=== PATIENT | male | born 1955 | race Caucasian/White ===

== ENCOUNTER 2017-01-22 12:13 | Emergency (ER) | payer OTHER ==
[~2017-01-22] VITALS: Ht 182.9 cm; Wt 97.7 kg
[2017-01-22] MEDS ORDERED: PREG100CA (12:28)
[2017-01-22] MEDS ORDERED: FLUT1SPR2 (12:28)
[2017-01-22] MEDS ORDERED: OMEP40CA2 (12:28)
[2017-01-22] MEDS ORDERED: ASPI1TAB15 PO (12:28)
[2017-01-22] MEDS ORDERED: FLOM5CAP (12:28)
[2017-01-22] MEDS ORDERED: VITA10006 PO (12:28)
[2017-01-22] MEDS ORDERED: LISI10TA4 (12:28)
[2017-01-22] MEDS ORDERED: ATOR1TAB19 (12:28)
[2017-01-22] MEDS ORDERED: FISH120012 PO (12:28)
[2017-01-22] MEDS ORDERED: DESL5TAB4 (12:28)
[2017-01-22] MEDS ORDERED: ASPIRIN 81 MG CHEW TABLET PO ONE (14:15)
[2017-01-22 14:22] LABS: BASO % 0.6 % (0.0-1.0); EOS # 0.2 K/mm3 (0.0-0.50); EOS % 2.1 % (0.0-3.0); LARGE UNSTAINED CELL # 0.3 K/mm3 (0.0-0.4); LARGE UNSTAINED CELL % 3.3 % (0.0-4.0); LYMPH # 4.9 K/mm3 (1.5-4.5); LYMPH % 54.2 % (24.0-44.0); MEAN CORPUSCULAR HEMOGLOBIN 32.4 pg (27.0-33.0); MEAN CORPUSCULAR HGB CONC 36.1 g/dl (32.0-36.5); MEAN CORPUSCULAR VOLUME 89.8 fl (80.0-96.0); MONO # 0.6 K/mm3 (0.0-0.8); NEUTROPHILS # 2.8 K/mm3 (1.8-7.7); NEUTROPHILS % 32.8 % (36.0-66.0); PLATELET COUNT, AUTOMATED 176 k/mm3 (150-450); RED CELL DISTRIBUTION WIDTH 12.9 % (11.5-14.5); WHITE BLOOD COUNT 8.5 K/mm3 (4.0-10.0)
[2017-01-22 14:42] LABS: ANION GAP 10 MEQ/L (8-16); BLOOD UREA NITROGEN 14 MG/DL (7-18); CALCIUM LEVEL 8.6 MG/DL (8.8-10.2); CARBON DIOXIDE LEVEL 26 MEQ/L (21-32); CHLORIDE LEVEL 106 MEQ/L (98-107); CREATININE FOR GFR 0.99 MG/DL (0.70-1.30); GLOMERULAR FILTRATION RATE > 60.0 (>49); GLUCOSE, FASTING 104 MG/DL (80-110); POTASSIUM SERUM 3.6 MEQ/L (3.5-5.1); SODIUM LEVEL 142 MEQ/L (136-145)
--- NOTE | 2017-01-22 14:59 | REP ---
PORTABLE CHEST X-RAY: Single view. HISTORY: Chest pain. COMPARISON STUDY: August 24, 2012. FINDINGS: EKG monitoring electrodes overlie the chest. Lungs are well inflated and clear. Heart is not enlarged. Pulmonary vasculature is not increased. There is some minimal linear fibrosis in the left base. The pleural angles are sharp. No significant bony abnormality. IMPRESSION: Minimal linear fibrosis left base. Otherwise no acute disease. Signed by Shravan Dale MD 01/22/2017 04:40 P
[2017-01-22 15:07] LABS: ALBUMIN 3.9 GM/DL (3.2-5.2); ALBUMIN/GLOBULIN RATIO 1.22 (1.00-1.93); ALKALINE PHOSPHATASE 49 U/L (45-117); ALT/SGPT 44 U/L (12-78); AST/SGOT 27 U/L (15-37); BILIRUBIN,DIRECT 0.2 MG/DL (0.0-0.2); BILIRUBIN,TOTAL 0.9 MG/DL (0.2-1.0); TOTAL PROTEIN 7.1 GM/DL (6.4-8.2)
[2017-01-22 18:48] VITALS: BP 134/82
--- NOTE | 2017-01-22 20:59 | ECGEPIP ---
Stationary ECG Study [facility] - ED Test Date: 2017-01-22 Pat Name: KIEL VIVEROS Department: Room: - Gender: M Cota: : 1955 Requested By: ALEXANDRIA Smith Order Number: [id number] Reading MD: Meg Martin Measurements Intervals [place] Rate: 56 P: 16 MT: 186 QRS: 14 QRSD: 116 T: 25 QT: 408 QTc: 394 Interpretive Statements SINUS BRADYCARDIA MODERATE INTRAVENTRICULAR CONDUCTION DELAY NSTTW ABNORMALITY Electronically Signed On 01-22-2017 20:59:21 EDT by Meg Martin
--- NOTE | 2017-01-22 21:03 | ECGEPIP ---
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
== END 2017-01-22 18:53 | disposition home or self-care (01) ==
LOC: M ED 12:13
DX: R07.89 Other chest pain (principal); I10 Essential (primary) hypertension; E78.5 Hyperlipidemia, unspecified; K21.9 Gastro-esophageal reflux disease without esophagitis; Z79.899 Other long term (current) drug therapy; Z79.82 Long term (current) use of aspirin

== ENCOUNTER → 2017-02-10 | Outpatient (REF) | payer OTHER ==
[~2017-02-10] MED LIST: ASPI1TAB15 PO; ATOR1TAB19; DESL5TAB4; FISH120012 PO; FLOM5CAP; FLUT1SPR2; LISI10TA4; OMEP40CA2; PREG100CA; VITA10006 PO
== END ==
LOC: M LABDRAW1 10:26
PROVIDERS: ATTEND Emergency Medicine
DX: R00.2 Palpitations (principal); I10 Essential (primary) hypertension

== ENCOUNTER → 2017-07-14 | Outpatient (CLI) | payer OTHER ==
[~2017-07-14] MED LIST changes: +METHACHOLINE KIT (J7674) INH ONE
--- NOTE | 2017-07-14 10:19 | PFTRPT ---
Site: [facility], [address] [place], [address] ID: [id number] Name: KIEL VIVEROS Doctor: Vee Sanders Tech: Saravanan WILLIAMSON RRT Age: 62 Sex: Male Race: Height: 70.00 Inches Weight: 201.00 Lbs BSA: 2.09 Diagnosis: R06.02 of albuterol for postbronchodilator. Pre-Bronch Post-Bronch Pred Actual %Pred Actual %Chng SPIROMETRY FVC (L) 4.66 5.42 116 5.25 -3 FEV1 (L) 3.49 4.52 129 4.27 -5 FEV1/FVC (%) 75 83 111 81 -2 FEF 25% (L/sec) 7.43 8.14 109 7.95 -2 FEF 50% (L/sec) 4.46 5.42 121 4.95 -8 FEF 75% (L/sec) 1.37 2.30 168 1.54 -33 FEF 25-75% (L/sec) 2.80 4.71 168 3.87 -17 FEF Max (L/sec) 8.96 10.11 112 9.58 -5 FIVC (L) 5.32 5.14 -3 FIF 50% (L/sec) 4.63 6.68 144 5.99 -10 FIF Max (L/sec) 6.68 6.06 -9
== END ==
LOC: M CARPUL 09:01
PROVIDERS: ATTEND Nurse Practitioner Adult Health
DX: R06.02 Shortness of breath (principal)
CPT/HCPCS: 94070; J7674

== ENCOUNTER → 2017-09-20 | Outpatient (CLI) | payer OTHER | LOC: M SLEEP 19:33 | DX: G47.30 Sleep apnea, unspecified (principal) ==

== ENCOUNTER → 2020-08-22 | Outpatient (REF) | payer MEDICARE, OTHER ==
[~2020-08-22] MED LIST changes: +ASPI-546 PO; -ASPI1TAB15 PO; +DESL1TAB3; -DESL5TAB4; +FLOM0.4C39; -FLOM5CAP; +LISI10TA22; -LISI10TA4; -METHACHOLINE KIT (J7674) INH ONE; -OMEP40CA2; +OMEP40CA97
== END ==
LOC: M LAB REF 18:13
PROVIDERS: ATTEND Physician Assistant
DX: J06.9 Acute upper respiratory infection, unspecified (principal)

== ENCOUNTER → 2020-11-27 | Outpatient (REF) | payer MEDICARE, OTHER | LOC: M LAB REF 17:00 | PROVIDERS: ATTEND Family Medicine | DX: M70.22 Olecranon bursitis, left elbow (principal) ==

== ENCOUNTER → 2021-03-11 | Outpatient (CLI) | payer MEDICARE, OTHER ==
[~2021-03-11] MED LIST changes: +OMEP40CA4; -OMEP40CA97
[2021-03-11 13:35] LABS: BASO % 0.8 % (0.0-1.0); EOS # 0.2 10^3/uL (0.0-0.5); HEMATOCRIT 44.2 % (42.0-52.0); HEMOGLOBIN 15.2 g/dl (13.5-17.5); LYMPH # 1.9 10^3/uL (1.5-5.0); LYMPH % 39.5 % (24.0-44.0); MEAN CORPUSCULAR HEMOGLOBIN 31.5 pg (27.0-33.0); MEAN CORPUSCULAR HGB CONC 34.4 g/dl (32.0-36.5); MEAN CORPUSCULAR VOLUME 91.5 fl (80.0-96.0); MONO # 0.6 10^3/uL (0.0-0.8); MONO % 11.6 % (2.0-8.0); NEUTROPHILS # 2.1 10^3/uL (1.5-8.5); NEUTROPHILS % 42.5 % (36.0-66.0); PLATELET COUNT, AUTOMATED 192 10^3/uL (150-450); RED BLOOD COUNT 4.83 10^6/uL (4.30-6.10); WHITE BLOOD COUNT 4.8 10^3/uL (4.0-10.0)
[2021-03-11 14:04] LABS: BLOOD UREA NITROGEN 14 MG/DL (7-18); CALCIUM LEVEL 8.6 MG/DL (8.8-10.2); CARBON DIOXIDE LEVEL 28 MEQ/L (21-32); CHLORIDE LEVEL 107 MEQ/L (98-107); CREATININE FOR GFR 0.86 MG/DL (0.70-1.30); GLOMERULAR FILTRATION RATE > 60.0 (>49); GLUCOSE, FASTING 93 MG/DL (70-100); POTASSIUM SERUM 4.3 MEQ/L (3.5-5.1); SODIUM LEVEL 138 MEQ/L (136-145)
[2021-03-11 14:10] LABS: ERYTHROCYTE SEDIMENTATION RATE 2 mm/hr (0-20)
== END ==
LOC: M PLALAB 10:36
PROVIDERS: ATTEND Internal Medicine Infectious Disease
DX: M70.22 Olecranon bursitis, left elbow (principal); Z79.899 Other long term (current) drug therapy
CPT/HCPCS: 36415; 80048; 85025; 85652; 86140; G0463

== ENCOUNTER → 2021-07-23 | Outpatient (REF) | payer MEDICARE, OTHER ==
[2021-07-23 14:07] LABS: APPEARANCE, URINE CLEAR (CLEAR); BACTERIA, URINE AUTO NEGATIVE (NEGATIVE); BILIRUBIN, URINE AUTO NEGATIVE (NEGATIVE); BLOOD, URINE BLOOD NEGATIVE (NEGATIVE); COLOR, URINE YELLOW (YELLOW); GLUCOSE, URINE (UA) AUTO NEGATIVE (NEGATIVE); KETONE, URINE AUTO NEGATIVE (NEGATIVE); LEUKOCYTE ESTERASE, URINE AUTO NEGATIVE (NEGATIVE); NITRITE, URINE AUTO NEGATIVE (NEGATIVE); PROTEIN, URINE AUTO NEGATIVE (NEGATIVE); RBC, URINE AUTO 1 /HPF (0-3); SPECIFIC GRAVITY URINE AUTO 1.012 (1.002-1.035); SQUAMOUS EPITHELIAL CELL UR AU 0 /HPF (0-6); UROBILINOGEN, URINE AUTO 0.2 mg/dL (0.0-2.0); WBC, URINE AUTO 0 /HPF (0-3)
== END ==
LOC: M SMT 13:02
PROVIDERS: ATTEND Physician Assistant
DX: R97.20 Elevated prostate specific antigen [PSA] (principal); Z79.899 Other long term (current) drug therapy
CPT/HCPCS: 81001; 87086; G0463

== ENCOUNTER → 2021-10-20 | Outpatient (CLI) | payer MEDICARE, OTHER | LOC: M LAB 09:55 | PROVIDERS: ATTEND Physician Assistant | DX: R97.20 Elevated prostate specific antigen [PSA] (principal) ==

== ENCOUNTER → 2021-11-05 | Outpatient (REF) | payer MEDICARE, OTHER | LOC: M SMT PRO 09:47 | PROVIDERS: ATTEND Urology | DX: R97.20 Elevated prostate specific antigen [PSA] (principal) | CPT/HCPCS: 55700; 76942; G0416 ==

== ENCOUNTER → 2021-11-18 | Outpatient (REF) | payer MEDICARE, OTHER | LOC: M LAB REF 17:01 | PROVIDERS: ATTEND Physician Assistant | DX: N41.0 Acute prostatitis (principal) ==

== ENCOUNTER → 2022-01-02 | Outpatient (CLI) | payer MEDICARE, OTHER ==
[2022-01-02 08:04] LABS: BASO % 0.6 % (0.0-1.0); EOS # 0.2 10^3/uL (0.0-0.5); EOS % 3.2 % (0.0-3.0); HEMATOCRIT 44.1 % (42.0-52.0); HEMOGLOBIN 15.2 g/dl (13.5-17.5); LYMPH # 2.1 10^3/uL (1.5-5.0); LYMPH % 41.9 % (24.0-44.0); MEAN CORPUSCULAR HEMOGLOBIN 31.2 pg (27.0-33.0); MEAN CORPUSCULAR HGB CONC 34.5 g/dl (32.0-36.5); MEAN CORPUSCULAR VOLUME 90.6 fl (80.0-96.0); MONO # 0.5 10^3/uL (0.0-0.8); NEUTROPHILS # 2.2 10^3/uL (1.5-8.5); NEUTROPHILS % 44.1 % (36.0-66.0); PLATELET COUNT, AUTOMATED 207 10^3/uL (150-450); RED BLOOD COUNT 4.87 10^6/uL (4.30-6.10)
[2022-01-02 08:35] LABS: ALBUMIN 3.6 GM/DL (3.2-5.2); ALT/SGPT 33 U/L (12-78); BILIRUBIN,TOTAL 0.5 MG/DL (0.2-1.0); BLOOD UREA NITROGEN 27 MG/DL (7-18); CALCIUM LEVEL 9.3 MG/DL (8.8-10.2); CARBON DIOXIDE LEVEL 28 MEQ/L (21-32); CHLORIDE LEVEL 110 MEQ/L (98-107); CHOLESTEROL LEVEL 147 MG/DL (<200); FREE T4 0.87 NG/DL (0.76-1.46); GLOMERULAR FILTRATION RATE > 60.0 (>49); GLUCOSE, FASTING 108 MG/DL (70-100); HDL CHOLESTEROL 35 MG/DL (>40); LDL CHOLESTEROL 92 MG/DL (<100); NON-HDL-C 112 MG/DL; POTASSIUM SERUM 4.7 MEQ/L (3.5-5.1); SODIUM LEVEL 144 MEQ/L (136-145); THYROID STIMULATING HORMONE 0.828 uIU/ML (0.358-3.740); TOTAL PROTEIN 6.7 GM/DL (6.4-8.2); TRIGLYCERIDES LEVEL 100 MG/DL (<150)
[2022-01-04 08:08] LABS: PSA TOTAL 10.9 ng/mL (0.0-4.0)
== END ==
LOC: M LAB 07:31
PROVIDERS: ATTEND Family Medicine
DX: E78.2 Mixed hyperlipidemia (principal); R97.20 Elevated prostate specific antigen [PSA]

== ENCOUNTER → 2022-01-06 | Outpatient (CLI) | payer MEDICARE, OTHER | LOC: M RAD 12:01 | PROVIDERS: ATTEND Physician Assistant | DX: M25.552 Pain in left hip (principal) ==

== ENCOUNTER → 2022-04-23 | Outpatient (CLI) | payer MEDICARE, OTHER ==
[2022-04-24 23:11] LABS: PSA % FREE 16.3 % (.); PSA FREE 0.93 ng/mL; PSA TOTAL 5.7 ng/mL (0.0-4.0)
== END ==
LOC: M LAB 08:44
PROVIDERS: ATTEND Urology
DX: R97.20 Elevated prostate specific antigen [PSA] (principal)

== ENCOUNTER → 2022-12-08 | Outpatient (CLI) | payer MEDICARE, OTHER | LOC: M LAB 08:44 | PROVIDERS: ATTEND Physician Assistant | DX: R97.20 Elevated prostate specific antigen [PSA] (principal) ==

== ENCOUNTER → 2022-12-31 | Outpatient (CLI) | payer MEDICARE, OTHER ==
[2022-12-31 08:03] LABS: BASO % 0.4 % (0.0-1.0); EOS # 0.2 10^3/uL (0.0-0.5); HEMATOCRIT 43.9 % (42.0-52.0); HEMOGLOBIN 15.3 g/dl (13.5-17.5); LYMPH % 26.2 % (24.0-44.0); MEAN CORPUSCULAR HEMOGLOBIN 31.7 pg (27.0-33.0); MEAN CORPUSCULAR HGB CONC 34.9 g/dl (32.0-36.5); MEAN CORPUSCULAR VOLUME 90.9 fl (80.0-96.0); MONO # 0.6 10^3/uL (0.0-0.8); MONO % 8.5 % (2.0-8.0); NEUTROPHILS # 4.7 10^3/uL (1.5-8.5); NEUTROPHILS % 62.6 % (36.0-66.0); PLATELET COUNT, AUTOMATED 181 10^3/uL (150-450); RED BLOOD COUNT 4.83 10^6/uL (4.30-6.10); WHITE BLOOD COUNT 7.5 10^3/uL (4.0-10.0)
[2022-12-31 08:30] LABS: ALKALINE PHOSPHATASE 50 U/L (46-116); ALT/SGPT 21 U/L (7.0-40); AST/SGOT 12 U/L (<34); BLOOD UREA NITROGEN 22 MG/DL (9-23); CALCIUM LEVEL 8.8 MG/DL (8.3-10.6); CARBON DIOXIDE LEVEL 30 MMOL/L (20-31); CHLORIDE LEVEL 106 MMOL/L (98-107); CHOLESTEROL LEVEL 139 MG/DL (<200); CHOLESTEROL RISK RATIO 3.54 (<5); GLOMERULAR FILTRATION RATE > 60.0 (>49); GLUCOSE, FASTING 99 MG/DL (74-106); HDL CHOLESTEROL 39.2 MG/DL (>40); LDL CHOLESTEROL 82.8 MG/DL (<100); NON-HDL-C 99.8 MG/DL; POTASSIUM SERUM 4.7 MMOL/L (3.5-5.1); SODIUM LEVEL 141 MMOL/L (136-145); TOTAL PROTEIN 6.4 G/DL (5.7-8.2); TRIGLYCERIDES LEVEL 85 MG/DL (<150)
[2023-01-01 23:10] LABS: PSA % FREE 15.5 % (.); PSA FREE 0.68 ng/mL; PSA TOTAL 4.4 ng/mL (0.0-4.0)
== END ==
LOC: M LAB 07:35
PROVIDERS: ATTEND Physician Assistant
DX: E78.2 Mixed hyperlipidemia (principal); R97.20 Elevated prostate specific antigen [PSA]

== ENCOUNTER → 2023-05-21 | Outpatient (REF) | payer MEDICARE, OTHER | LOC: M LAB REF 14:36 | PROVIDERS: ATTEND Surgery | DX: C44.91 Basal cell carcinoma of skin, unspecified (principal) ==

== ENCOUNTER → 2023-12-02 | Outpatient (CLI) | payer MEDICARE, OTHER | LOC: M LAB 08:40 | PROVIDERS: ATTEND Physician Assistant | DX: R97.20 Elevated prostate specific antigen [PSA] (principal) ==

== ENCOUNTER → 2024-01-10 | Outpatient (CLI) | payer MEDICARE, OTHER ==
[2024-01-10 08:03] LABS: BASO % 0.6 % (0.0-1.0); EOS # 0.1 10^3/uL (0.0-0.5); EOS % 2.8 % (0.0-3.0); HEMATOCRIT 45.4 % (42.0-52.0); LYMPH # 1.8 10^3/uL (1.5-5.0); MEAN CORPUSCULAR HEMOGLOBIN 32.2 pg (27.0-33.0); MEAN CORPUSCULAR HGB CONC 35.2 g/dl (32.0-36.5); MEAN CORPUSCULAR VOLUME 91.3 fl (80.0-96.0); MONO # 0.5 10^3/uL (0.0-0.8); MONO % 10.7 % (2.0-8.0); NEUTROPHILS # 2.4 10^3/uL (1.5-8.5); NEUTROPHILS % 48.7 % (36.0-66.0); PLATELET COUNT, AUTOMATED 164 10^3/uL (150-450); RED BLOOD COUNT 4.97 10^6/uL (4.30-6.10)
[2024-01-10 08:30] LABS: ALBUMIN 3.8 G/DL (3.2-5.2); ALKALINE PHOSPHATASE 40 U/L (46-116); ALT/SGPT 23 U/L (7.0-40); AST/SGOT 9 U/L (<34); BILIRUBIN,TOTAL 0.9 MG/DL (0.3-1.2); BLOOD UREA NITROGEN 32 MG/DL (9-23); CALCIUM LEVEL 8.8 MG/DL (8.3-10.6); CARBON DIOXIDE LEVEL 27 MMOL/L (20-31); CHLORIDE LEVEL 110 MMOL/L (98-107); CHOLESTEROL LEVEL 147 MG/DL (<200); CHOLESTEROL RISK RATIO 4.12 (<5); CREATININE FOR GFR 0.78 MG/DL (0.70-1.30); GLOMERULAR FILTRATION RATE > 60.0 (>49); GLUCOSE, FASTING 95 MG/DL (74-106); HDL CHOLESTEROL 35.6 MG/DL (>40); LDL CHOLESTEROL 88.2 MG/DL (<100); NON-HDL-C 111.4 MG/DL; POTASSIUM SERUM 4.5 MMOL/L (3.5-5.1); SODIUM LEVEL 142 MMOL/L (136-145); TOTAL PROTEIN 6.3 G/DL (5.7-8.2); TRIGLYCERIDES LEVEL 116 MG/DL (<150)
[2024-01-10 08:32] LABS: FREE T4 1.06 NG/DL (0.89-1.76); THYROID STIMULATING HORMONE 0.561 uIU/ML (0.55-4.78)
[2024-01-10 09:06] LABS: HEMOGLOBIN A1c 4.7 % (4.0-6.0)
== END ==
LOC: M LAB 07:00
PROVIDERS: ATTEND Physician Assistant
DX: E78.2 Mixed hyperlipidemia (principal)

== ENCOUNTER → 2024-04-17 | Outpatient (REF) | payer MEDICARE, OTHER | LOC: M SFHCDERM 18:00 | PROVIDERS: ATTEND Physician Assistant | DX: D22.5 Melanocytic nevi of trunk (principal) ==

== ENCOUNTER → 2024-06-27 | Outpatient (CLI) | payer MEDICARE, OTHER ==
[2024-06-27 09:04] LABS: BASO % 0.6 % (0.0-1.0); EOS # 0.1 10^3/uL (0.0-0.5); EOS % 2.4 % (0.0-3.0); HEMOGLOBIN 15.9 g/dl (13.5-17.5); LYMPH # 1.7 10^3/uL (1.5-5.0); LYMPH % 31.3 % (24.0-44.0); MEAN CORPUSCULAR HEMOGLOBIN 32.4 pg (27.0-33.0); MEAN CORPUSCULAR HGB CONC 35.3 g/dl (32.0-36.5); MEAN CORPUSCULAR VOLUME 91.6 fl (80.0-96.0); MONO # 0.6 10^3/uL (0.0-0.8); NEUTROPHILS # 2.9 10^3/uL (1.5-8.5); NEUTROPHILS % 54.3 % (36.0-66.0); PLATELET COUNT, AUTOMATED 169 10^3/uL (150-450); RED BLOOD COUNT 4.91 10^6/uL (4.30-6.10); WHITE BLOOD COUNT 5.3 10^3/uL (4.0-10.0)
[2024-06-27 09:25] LABS: ALBUMIN 3.8 G/DL (3.2-5.2); ALKALINE PHOSPHATASE 43 U/L (40-129); ALT/SGPT 25 U/L (7.0-40); AST/SGOT 9 U/L (<34); BILIRUBIN,TOTAL 0.9 MG/DL (0.3-1.2); BLOOD UREA NITROGEN 32 MG/DL (9-23); CALCIUM LEVEL 9.4 MG/DL (8.3-10.6); CARBON DIOXIDE LEVEL 28 MMOL/L (20-31); CHLORIDE LEVEL 108 MMOL/L (98-107); CHOLESTEROL LEVEL 146 MG/DL (<200); CHOLESTEROL RISK RATIO 3.66 (<5); CREATININE FOR GFR 0.79 MG/DL (0.70-1.30); GLOMERULAR FILTRATION RATE > 60.0 (>42); GLUCOSE, FASTING 99 MG/DL (74-106); HDL CHOLESTEROL 39.8 MG/DL (>40); NON-HDL-C 106.2 MG/DL; POTASSIUM SERUM 4.5 MMOL/L (3.5-5.1); SODIUM LEVEL 143 MMOL/L (136-145); TOTAL PROTEIN 6.5 G/DL (5.7-8.2); TRIGLYCERIDES LEVEL 106 MG/DL (<150)
[2024-06-27 09:27] LABS: FREE T4 0.98 NG/DL (0.89-1.76)
[2024-06-27 09:29] LABS: HEMOGLOBIN A1c 4.8 % (4.0-6.0)
== END ==
LOC: M LAB 08:05
PROVIDERS: ATTEND Physician Assistant
DX: E78.2 Mixed hyperlipidemia (principal)

== ENCOUNTER → 2025-04-18 | Outpatient (REF) | payer MEDICARE, OTHER ==
[~2025-04-18] MED LIST changes: -FLOM0.4C39; +PREG-35; -PREG100CA; +TAMS-18
== END ==
LOC: M SFHCDERM 17:59
PROVIDERS: ATTEND Physician Assistant
DX: D48.9 Neoplasm of uncertain behavior, unspecified (principal)

== ENCOUNTER → 2025-04-23 | Outpatient (CLI) | payer MEDICARE, OTHER | LOC: M PLAIMG 07:30 | PROVIDERS: ATTEND Physician Assistant | DX: I11.9 Hypertensive heart disease without heart failure (principal) ==

== ENCOUNTER 2025-05-30 08:02 | Day surgery (SDC) | payer MEDICARE, OTHER ==
[~2025-05-30] VITALS: Ht 180.3 cm; Wt 93.6 kg
[~2025-05-30 08:02] MED LIST changes: +ACET-907 PO; -ATOR1TAB19; +ATOR1TAB19 PO; +BACL10TA2 PO; +LEVOTAB10 PO; -LISI10TA22; +LISI10TA22 PO; +MONT10TA97 PO; +MULT-90 PO; +OMEG10002 PO; -OMEP40CA4; +OMEP40CA4 PO; -PREG-35; +PREG-35 PO; -TAMS-18; +TAMS-18 PO; +VENTAER INH; +VITA500T4 PO
[2025-05-30] MEDS ORDERED: LIDOCAINE 2% 100 MG/5 ML SDV (FOR ANES.) As Ordered ONE (09:22)
[2025-05-30 10:15] VITALS: BP 117/79; TEMP 97.3; O2SAT 96
== END 2025-05-30 10:22 | disposition home or self-care (01) ==
LOC: M OPP 08:02
PROVIDERS: ATTEND Surgery
DX: Z12.11 Encounter for screening for malignant neoplasm of colon (principal); D12.6 Benign neoplasm of colon, unspecified; K57.30 Diverticulosis of large intestine without perforation or abscess without bleeding; Z79.82 Long term (current) use of aspirin; Z79.899 Other long term (current) drug therapy; J45.909 Unspecified asthma, uncomplicated

== ENCOUNTER → 2025-07-13 | Outpatient (CLI) | payer MEDICARE, OTHER ==
[2025-07-13 09:44] LABS: BASO # 0.0 10^3/uL (0.0-0.2); BASO % 0.7 % (0.0-1.0); EOS # 0.2 10^3/uL (0.0-0.5); EOS % 4.0 % (0.0-3.0); LYMPH # 2.2 10^3/uL (1.5-5.0); LYMPH % 37.8 % (24.0-44.0); MONO # 0.6 10^3/uL (0.0-0.8); MONO % 9.8 % (2.0-8.0); NEUTROPHILS # 2.7 10^3/uL (1.5-8.5); NEUTROPHILS % 47.4 % (36.0-66.0); PLATELET COUNT, AUTOMATED 225 10^3/uL (150-450)
[2025-07-13 10:04] LABS: ALT/SGPT 28 U/L (7.0-40); AST/SGOT 20 U/L (<34); CALCIUM LEVEL 9.3 MG/DL (8.3-10.6); CARBON DIOXIDE LEVEL 30 MMOL/L (20-31); CHLORIDE LEVEL 106 MMOL/L (98-107); CHOLESTEROL LEVEL 169 MG/DL (<200); CHOLESTEROL RISK RATIO 4.22 (<5); CREATININE FOR GFR 0.80 MG/DL (0.70-1.30); GLOMERULAR FILTRATION RATE > 90.0 (>42); LDL CHOLESTEROL 104.2 MG/DL (<100); NON-HDL-C 129.0 MG/DL; POTASSIUM SERUM 4.8 MMOL/L (3.5-5.1); SODIUM LEVEL 142 MMOL/L (136-145); TRIGLYCERIDES LEVEL 124 MG/DL (<150)
[2025-07-13 10:11] LABS: ESTIMATED AVERAGE GLUCOSE 97.0 MG/DL (60-110)
[2025-07-16 11:42] LABS: PSA % FREE 23.0 % (calc) (>25); PSA FREE 1.3 ng/mL; PSA TOTAL 5.7 ng/mL (< OR = 4.0)
== END ==
LOC: M LAB 08:12
PROVIDERS: ATTEND Physician Assistant
DX: E78.2 Mixed hyperlipidemia (principal); N40.0 Benign prostatic hyperplasia without lower urinary tract symptoms; R73.01 Impaired fasting glucose